=== PATIENT | female | born 1960 ===

== ENCOUNTER → 2021-08-20 09:56 | Outpatient (BNVA) | payer MEDICARE, OTHER, SELFPAY | PROVIDERS: PCP Internal Medicine; Visit Provider Nurse Practitioner Family | DX: R35.1 Nocturia (principal); R51.9 Headache, unspecified; G47.33 Obstructive sleep apnea (adult) (pediatric); M54.2 Cervicalgia | CPT/HCPCS: 99212 ==

== ENCOUNTER → 2021-12-10 13:28 | Outpatient (BNVA) | payer MEDICARE, OTHER, SELFPAY | PROVIDERS: PCP Internal Medicine; Visit Provider Nurse Practitioner Family | DX: R51.9 Headache, unspecified (principal); R25.1 Tremor, unspecified; M54.2 Cervicalgia; G47.33 Obstructive sleep apnea (adult) (pediatric) | CPT/HCPCS: 99212 ==

== ENCOUNTER → 2022-03-14 08:26 | Outpatient (BNVA) | payer MEDICARE, OTHER, SELFPAY | PROVIDERS: PCP Internal Medicine; Visit Provider Nurse Practitioner Family | DX: R51.9 Headache, unspecified (principal); M54.2 Cervicalgia; M25.511 Pain in right shoulder | CPT/HCPCS: 99212 ==

== ENCOUNTER → 2022-07-04 08:00 | Outpatient (BNVA) | payer MEDICARE, OTHER, SELFPAY | PROVIDERS: Visit Provider Nurse Practitioner Family | DX: R51.9 Headache, unspecified (principal); M54.2 Cervicalgia; G47.33 Obstructive sleep apnea (adult) (pediatric) | CPT/HCPCS: 99212 ==

== ENCOUNTER → 2022-11-07 09:27 | Outpatient (BNVA) | payer MEDICARE, OTHER, SELFPAY | PROVIDERS: Absent Provider Nurse Practitioner Family; PCP Neurological Surgery; Visit Provider Nurse Practitioner Family | DX: R51.9 Headache, unspecified (principal); M54.2 Cervicalgia; G47.33 Obstructive sleep apnea (adult) (pediatric) | CPT/HCPCS: 99212 ==

== ENCOUNTER 2023-05-09 09:34 | Outpatient (AMB) | payer MEDICARE, OTHER, SELFPAY ==
--- NOTE | 2023-05-09 09:54 | MHC.OFFVIS ---
Intake Vital Signs 05/09/23 09:55 Height 4 ft 11 in Weight 138 lb BMI 27.9 BP 110/78 Blood Pressure Location Rt brachial Position Sitting Pulse 100 Pulse Source Pulse Oximeter Pulse Oximetry (%) 95 Oxygen Delivery Method Room Air Intake Visit Reasons: 6m follow up headache-Confirmed Intake Note: Patient presents for 6 month headache. patient states I need a refill on my headache medicine, Im getting a few headaches but I think it's allergies Allergies amoxicillin [From Augmentin] Allergy (Intermediate, Verified 05/09/23 09:57) unknown aspirin Allergy (Intermediate, Verified 05/09/23 09:57) Unknown clavulanic acid [From Augmentin] Allergy (Intermediate, Verified 05/09/23 09:57) unknown Medication List - Last Reconciled 05/09/23 by FADIA Muñoz albuterol sulfate 90 mcg/actuation inhalation atomoxetine 60 mg PO DAILY atorvastatin 40 mg PO DAILY baclofen 10 mg PO BEDTIME PRN 90 days biotin (Meribin) 5 mg PO DAILY budesonide-formoterol 160-4.5 mcg/actuation (Symbicort) 1 inh inhalation BID bupropion HCl 450 mg PO QAM cetirizine (Zyrtec) 10 mg PO DAILY cholecalciferol (vitamin D3) 25 mcg PO DAILY clonidine HCl 0.1 mg PO TID dapagliflozin propanediol (Farxiga) 10 mg PO DAILY dicyclomine 10 mg PO ONCE PRN famotidine 40 mg PO DAILY fluticasone propionate 50 mcg/actuation 1 spray intranasal DAILY guaifenesin ER (Mucinex) 1,200 mg PO BID lansoprazole 30 mg PO BID levothyroxine (Synthroid) 125 mcg PO DAILY liothyronine 5 mcg PO DAILY metformin ER 1,000 mg PO BID metoclopramide HCl 20 mg PO QID ondansetron 4 mg PO Q8H tiotropium bromide 2.5 mcg/actuation (Spiriva Respimat) 2 puffs inhalation DAILY trazodone 200 mg PO BEDTIME HPI HPI Comments History of Present Illness Details 62-yr-old female presents for f/u visit. Pt denies any significant interval medical changes. Pt reports she is having a tension type headache about once a week or once every 2 weeks. Her neck can still be tight at times. She is trying not to drive as much- as her depth perception is off and she can have diplopia with extreme right lateral gaze d/t her Grave's. Tremor is stable. She does have increased oral-lingual movements today. Pt states she thinks this maybe d/t some dry mouth. However, it has been noticeable over the last 3 months or so, and is bothersome to her. She has been on Metoclopramide for years. She denies any h/o of antipsychotic medication use or psychiatric hospitalization. [facility] Medical History FH: cholecystectomy Family History Father COPD (chronic obstructive pulmonary disease) Heart disease Mother COPD (chronic obstructive pulmonary disease) Social History Alcohol intake: current Alcohol intake frequency: holidays/special occasions only Patient Tobacco Use Status: Former Tobacco user Quit Date: august 2021 Review of Systems Const All systems reviewed & are unremarkable except as noted in HPI and below Physical Exam Vital Signs: Last Vital Signs Pulse 100 05/09/23 09:55 BP 110/78 05/09/23 09:55 Pulse Ox 95 05/09/23 09:55 Oxygen Delivery Method Room Air 05/09/23 09:55 BMI result Body Mass Index 27.9 Const General: cooperative and no acute distress Orientation/consciousness: patient oriented x3 HEENT Head: Yes normocephalic Resp Effort & Inspection: normal respiratory effort and able to speak in complete sentences Neuro Other: Involunatry oral-lingual movements. Very mild BUE postural tremor. General: patient oriented x3, gait normal and CN's II-XI intact bilaterally Cognition (Neuro): normal cognition Motor exam (neuro): 5/5 motor strength present throughout Psych Appearance: grossly normal Mental Status: mental status grossly normal Speech and movement: Clear speech present Affect: normal affect Attitude: cooperative Thought process: Normal thought process present Thought content: Normal thought content present Assessment & Plan Assessment & Plan (1) TTH (tension-type headache): Code(s): G44.209 - Tension-type headache, unspecified, not intractable (2) Headache: Comment: likely cervicogenic. In 2020- had increased positional BANDA (lying down) in setting of weight gain and LP OP 24 cmH2O. Code(s): R51.9 - Headache, unspecified (3) Cervicalgia: Code(s): M54.2 - Cervicalgia (4) Tremor: Code(s): R25.1 - Tremor, unspecified (5) Abnormal involuntary movement: Comment: ? TD secondary to chronic Metoclopramide use Code(s): R25.9 - Unspecified abnormal involuntary movements Plan For Headache- May use Fioricet prn- sparingly If headaches worsen, consider resuming Topiramate or trying prn gepant For cervicalgia- Continue Baclofen prn, may take extra 1 tab per day prn. Encouraged pt to do upper body stretches/ROM, sunita when knitting etc. For involuntary oral movements- Discussed these likely are d/t TD d/t chronic metoclopramide use. Information given for pt to review. We could consider head imaging; trial of a VMAT-2 inhibitor. For tremor- Stable- monitor clinically. For JOSE- Continue to try to use oral appliance. Monitor sleep. f/u in 3-4 months or sooner prn. Coding Level of Care Code Est Pt Level 4 (26639) Diagnoses TTH (tension-type headache) G44.209 Headache R51.9 Cervicalgia M54.2 Tremor R25.1 Abnormal involuntary movement R25.9
[2023-05-09 09:55] VITALS: BP 110/78; PULSE 100; O2SAT 95; BMI 27.9
== END 2023-05-09 10:36 | disposition home or self-care (01) ==
PROVIDERS: PCP Neurological Surgery; Visit Provider Nurse Practitioner Family
DX: G44.209 Tension-type headache, unspecified, not intractable (principal); M54.2 Cervicalgia; R25.9 Unspecified abnormal involuntary movements
CPT/HCPCS: 99214

== ENCOUNTER → 2023-05-09 09:34 | Outpatient (BNVA) | payer MEDICARE, OTHER, SELFPAY | PROVIDERS: PCP Neurological Surgery; Visit Provider Nurse Practitioner Family | DX: G44.209 Tension-type headache, unspecified, not intractable (principal); R51.9 Headache, unspecified | CPT/HCPCS: 99212 ==

== ENCOUNTER 2023-08-26 09:28 | Outpatient (AMB) | payer MEDICARE, OTHER, SELFPAY ==
--- NOTE | 2023-08-26 09:39 | A.OFFVIS_ITS ---
Intake Vital Signs 08/26/23 09:40 Height 4 ft 11 in Weight 138 lb BMI 27.9 BP 100/82 Blood Pressure Location Rt brachial Position Sitting Pulse 111 H Pulse Source Pulse Oximeter Intake Visit Reasons: 6m follow up headache-Confirmed Intake Note: Patient presents for 6 month follow headache. Everything's fine Allergies amoxicillin [From Augmentin] Allergy (Intermediate, Verified 08/26/23 09:42) unknown aspirin Allergy (Intermediate, Verified 08/26/23 09:42) Unknown clavulanic acid [From Augmentin] Allergy (Intermediate, Verified 08/26/23 09:42) unknown Medication List - Last Reconciled 08/26/23 by FADIA Muñoz albuterol sulfate 90 mcg/actuation inhalation atomoxetine 60 mg PO DAILY atorvastatin 40 mg PO DAILY baclofen 10 mg PO BEDTIME PRN 90 days biotin (Meribin) 5 mg PO DAILY budesonide-formoterol 160-4.5 mcg/actuation (Symbicort) 1 inh inhalation BID bupropion HCl 450 mg PO QAM cetirizine (Zyrtec) 10 mg PO DAILY cholecalciferol (vitamin D3) 25 mcg PO DAILY clonidine HCl 0.1 mg PO TID dapagliflozin propanediol (Farxiga) 10 mg PO DAILY dicyclomine 10 mg PO ONCE PRN famotidine 40 mg PO DAILY fluticasone propionate 50 mcg/actuation 1 spray intranasal DAILY guaifenesin ER (Mucinex) 1,200 mg PO BID lansoprazole 30 mg PO BID levothyroxine (Synthroid) 125 mcg PO DAILY liothyronine 5 mcg PO DAILY metformin ER 1,000 mg PO BID metoclopramide HCl 20 mg PO QID ondansetron 4 mg PO Q8H tiotropium bromide 2.5 mcg/actuation (Spiriva Respimat) 2 puffs inhalation DAILY trazodone 200 mg PO BEDTIME HPI HPI Comments History of Present Illness Details 62-yr-old female presents for f/u visit. Pt denies any significant interval medical changes. Pt has been having more mild frontal headaches (maybe sinus) than occipital region headaches. Using Tylenol for the frontal headaches. Uses Fioricet for the occipital headaches. Typically taking an as needed tx 1-2 x's per week. She has been having more noticeable intermittent diplopia, now looking forward rather than just in peripheral vision. If she is looking in the distance, say at a sign/picture and than tries to read it, the letters/words becomes double. Watching TV is usually ok, but sometimes has to make herself focus. Her has not been mentioning her oral movements lately. [facility] Medical History FH: cholecystectomy Family History Father COPD (chronic obstructive pulmonary disease) Heart disease Mother COPD (chronic obstructive pulmonary disease) Social History Alcohol intake: current Alcohol intake frequency: holidays/special occasions only Patient Tobacco Use Status: Former Tobacco user Quit Date: august 2021 Physical Exam Vital Signs: Last Vital Signs Pulse 111 H 08/26/23 09:40 BP 100/82 08/26/23 09:40 BMI result Body Mass Index 27.9 Const General: cooperative and no acute distress Orientation/consciousness: patient oriented x3 Resp Effort & Inspection: normal respiratory effort and able to speak in complete sentences Neuro Other: Asymmetric proptosis Involuntary orolingual movements. General: patient oriented x3 Cranial nerves: Yes CN's II-XII intact bilaterally Cognition (Neuro): normal cognition Psych Appearance: grossly normal Mental Status: mental status grossly normal Speech and movement: Normal speech and movement present Affect: normal affect Attitude: cooperative Assessment & Plan Assessment & Plan (1) Headache: Comment: likely cervicogenic. In 2020- had increased positional BANDA (lying down) in setting of weight gain and LP OP 24 cmH2O. Code(s): R51.9 - Headache, unspecified (2) Diplopia: Code(s): H53.2 - Diplopia (3) Abnormal involuntary movement: Comment: ? TD secondary to chronic Metoclopramide use Code(s): R25.9 - Unspecified abnormal involuntary movements (4) History of Graves' disease: Code(s): Z86.39 - Personal history of other endocrine, nutritional and metabolic disease (5) Proptosis: Code(s): H05.20 - Unspecified exophthalmos Plan Patient advised to undergo brain MRI with and without contrast to assess for secondary etiologies of worsening diplopia and oral lingual involuntary movements. For Headache- May use Fioricet prn- sparingly If headaches worsen, consider resuming Topiramate or trying prn gepant For cervicalgia- Continue Baclofen prn, may take extra 1 tab per day prn. Continue to do upper body stretches/ROM. For involuntary oral movements- Monitor clinically. We could consider trial of a VMAT-2 inhibitor. For tremor- Stable- monitor clinically. For JOSE- Continue to try to use oral appliance. Monitor sleep. f/u in 3-4 months or sooner prn. Orders: Orders Complete Blood Count Auto Diff 08/26/23 H53.2 - Diplopia, R25.9 - Unspecified abnormal involuntary movements, R51.9 - Headache, unspecified Comprehensive Met. Panel 08/26/23 H53.2 - Diplopia, R25.9 - Unspecified abnormal involuntary movements, R51.9 - Headache, unspecified MR head/brain wo/w con 08/26/23 H05.20 - Unspecified exophthalmos, H53.2 - Diplopia, R25.9 - Unspecified abnormal involuntary movements, R51.9 - Headache, unspecified, Z86.39 - Personal history of other endocrine, nutritional and metabolic disease Medications: Refilled baclofen may take 1 extra tab per day as needed 10 mg PO BEDTIME 90 days PRN 145 tabs 1RF neck pain ujstswnthq-qfoyewzkfporn-kcgm 50-325-40 mg 1 tab PO Q4H 90 days PRN 60 tabs 1RF headache Coding Level of Care Code Est Pt Level 4 (64687) Diagnoses Headache R51.9 Diplopia H53.2 Abnormal involuntary movement R25.9 History of Graves' disease Z86.39 Proptosis H05.20
[2023-08-26 09:40] VITALS: BP 100/82; PULSE 111; BMI 27.9
== END 2023-08-26 10:28 | disposition home or self-care (01) ==
PROVIDERS: PCP Neurological Surgery; Visit Provider Nurse Practitioner Family
DX: R51.9 Headache, unspecified (principal); H53.2 Diplopia; R25.9 Unspecified abnormal involuntary movements; Z86.39 Personal history of other endocrine, nutritional and metabolic disease; H05.20 Unspecified exophthalmos
CPT/HCPCS: 99214

== ENCOUNTER → 2023-08-26 09:28 | Outpatient (BNVA) | payer MEDICARE, OTHER, SELFPAY | PROVIDERS: PCP Neurological Surgery; Visit Provider Nurse Practitioner Family | DX: R51.9 Headache, unspecified (principal); H53.2 Diplopia; R25.9 Unspecified abnormal involuntary movements; H05.20 Unspecified exophthalmos; Z86.39 Personal history of other endocrine, nutritional and metabolic disease | CPT/HCPCS: 99212 ==

== ENCOUNTER 2023-10-03 11:12 | Outpatient (REF) | payer MEDICARE, OTHER, SELFPAY ==
--- NOTE | ~2023-10-03 | MR_ITS ---
EXAMINATION: MR BRAIN WITHOUT AND WITH CONTRAST CLINICAL INFORMATION: Diplopia, history of Graves' disease proptosis COMPARISON: CT of the orbits 05/20/2022, MRI of the brain without contrast 01/31/2021 TECHNIQUE: Multiplanar multisequence MR imaging of the brain was obtained without and following the administration of 6.5 mL Gadavist intravenous contrast. FINDINGS: There is no acute infarct on diffusion-weighted imaging. There is no intracranial hemorrhage on iron-sensitive imaging. No extra-axial collection or mass effect/herniation. Scattered periventricular and deep white matter T2 FLAIR hyperintensities consistent with mild underlying microangiopathy. No hydrocephalus. Mild generalized cerebral volume loss with commensurate sulcal and ventricular prominence. No abnormal parenchymal or extra-axial enhancement. The major flow voids at the skull base are preserved. The midline structures are normal. The cerebellar tonsils are normally positioned. The craniocervical junction is normal. Marrow signal is within normal limits. The visualized soft tissues are without significant abnormality. No signal abnormality within the paranasal sinuses or within the mastoid air cells. Stable right greater than left proptosis with prominent intraorbital fat. Grossly normal caliber of the extraocular muscles. Chronic fracture deformity of the right lamina papyracea with mild medial herniation of extraconal fat. MR/MR head/brain wo/w con IMPRESSION: 1. Stable right greater than left proptosis with prominent intraorbital fat, compatible with sequela of thyroid orbitopathy. 2. Mild volume loss and chronic white matter microangiopathy. Otherwise unremarkable contrast-enhanced MRI of the brain.
[2023-10-03] MEDS: gadobutroL 7.5 ML VIAL IVPUSH (12:04)
== END 2023-10-03 11:13 | disposition home or self-care (01) ==
LOC: HO.MRI 11:12
PROVIDERS: Visit Provider Nurse Practitioner Family
DX: H53.2 Diplopia (principal); R25.9 Unspecified abnormal involuntary movements; R51.9 Headache, unspecified; H05.20 Unspecified exophthalmos; Z86.39 Personal history of other endocrine, nutritional and metabolic disease
CPT/HCPCS: 70553; A9585

== ENCOUNTER 2023-12-23 09:09 | Outpatient (AMB) | payer MEDICARE, OTHER, SELFPAY ==
--- NOTE | 2023-12-23 09:12 | A.OFFVIS_ITS ---
Vital Signs 12/23/23 09:13 12/23/23 10:00 12/23/23 10:01 12/23/23 10:02 Height 4 ft 11 in Weight 136 lb BMI 27.5 BP 98/72 114/74 98/70 112/78 Blood Pressure Location Rt brachial Rt brachial Rt brachial Rt brachial Position Sitting Supine Standing Standing Pulse 108 H 101 H 106 H Pulse Source Pulse Oximeter Pulse Oximeter Pulse Oximeter Pulse Oximetry (%) 97 Oxygen Delivery Method Room Air Comment after 3 mins Intake Visit Reasons: 4 mo f/u-LVM Intake Note: Patient presents for 4 month follow up.havent been felling well sinced i last saw her, feeling light headed when stands a they feel weak and looses balance Allergies amoxicillin [From Augmentin] Allergy (Intermediate, Verified 12/23/23 09:27) unknown aspirin Allergy (Intermediate, Verified 12/23/23 09:27) Unknown clavulanic acid [From Augmentin] Allergy (Intermediate, Verified 12/23/23 09:27) unknown Medication List - Last Reconciled 12/23/23 by FADIA Muñoz albuterol sulfate 90 mcg/actuation inhalation atomoxetine 60 mg PO DAILY atorvastatin 40 mg PO DAILY baclofen 10 mg PO BEDTIME PRN 90 days biotin (Meribin) 5 mg PO DAILY budesonide-formoterol 160-4.5 mcg/actuation (Symbicort) 1 inh inhalation BID bupropion HCl XL 450 mg PO QAM juqlsurpfk-ozsmhjntixtqw-mnwu 50-325-40 mg 1 tab PO Q4H PRN 90 days cetirizine (Zyrtec) 10 mg PO DAILY cholecalciferol (vitamin D3) 25 mcg PO DAILY clonidine HCl 0.1 mg PO TID dapagliflozin propanediol (Farxiga) 10 mg PO DAILY dicyclomine 10 mg PO ONCE PRN famotidine 40 mg PO DAILY fluticasone propionate 50 mcg/actuation 1 spray intranasal DAILY guaifenesin ER (Mucinex) 1,200 mg PO BID lansoprazole 30 mg PO BID levothyroxine (Synthroid) 125 mcg PO DAILY liothyronine 5 mcg PO DAILY metformin ER 1,000 mg PO BID metoclopramide HCl 20 mg PO QID ondansetron 4 mg PO Q8H tiotropium bromide 2.5 mcg/actuation (Spiriva Respimat) 2 puffs inhalation DAILY trazodone 200 mg PO BEDTIME HPI Comments Details: Right-handed 63-yr-old female presents for f/u visit. Pt reports she has been having lightheadedness/dizziness upon standing or turning quickly for the last year- but not rolling over in bed. However, more recently this has become more intense and more frequent- now almost every time she stands or turns. Her diplopia is stable- occurs when she turns her head. Takes clonidine 0.1mg qhs. Otherwise not on a BP med. She does take a lot of fluids. She has not smoked in > 7 months. Her voice is more hoarse today- she thinks this is allergies. Walking slower. She is having more STM or recalling the names of things. Prone nick onstipation- her whole life. Denies tremor, leg cramps, stiffness, parasomnias, hyposmia. Takes metoclopramide. No other h/o psychotropic med use. The headaches are pretty good . She is not noticing her oral movements. 10/03/23, MR/MR head/brain wo/w con IMPRESSION: 1. Stable right greater than left proptosis with prominent intraorbital fat, compatible with sequela of thyroid orbitopathy. 2. Mild volume loss and chronic white matter microangiopathy. Otherwise unremarkable contrast-enhanced MRI of the brain. [facility] Medical History FH: cholecystectomy Family History Father COPD (chronic obstructive pulmonary disease) Heart disease Mother COPD (chronic obstructive pulmonary disease) Social History Alcohol intake: current Alcohol intake frequency: holidays/special occasions only Patient Tobacco Use Status: Former Tobacco user Quit Date: august 2021 Physical Exam Vital Signs: Last Vital Signs Pulse 106 H 12/23/23 10:01 BP 112/78 12/23/23 10:02 Pulse Ox 97 12/23/23 09:13 Oxygen Delivery Method Room Air 12/23/23 09:13 BMI result Body Mass Index 27.5 Const General: cooperative and no acute distress Orientation/consciousness: patient oriented x3 Resp Effort & Inspection: normal respiratory effort and able to speak in complete sentences Neuro Other: Mild decreased expression Mild intermittent lingual movements Hoarse soft voice LUE postural tremor BUE MELINDA- slower on left Tone- no appreciable tone FFM- mildly decreased on left Foot taps- Mildly decreased on left Gait- stands slowly, decreased left arm swing, multiple steps to turn, unsteady during turn, steady gait when walking straight. General: patient oriented x3 Cranial nerves: Yes CN's II-XII intact bilaterally Cognition (Neuro): normal cognition Psych Appearance: grossly normal Mental Status: mental status grossly normal Affect: normal affect Attitude: cooperative Assessment & Plan Assessment & Plan (1) Headache: Comment: likely cervicogenic. In 2020- had increased positional BANDA (lying down) in setting of weight gain and LP OP 24 cmH2O. Code(s): R51.9 - Headache, unspecified Category: Medical (2) Abnormal involuntary movement: Comment: ? TD secondary to chronic Metoclopramide use Code(s): R25.9 - Unspecified abnormal involuntary movements Category: Medical (3) Lightheadedness: Code(s): R42 - Dizziness and giddiness Category: Medical (4) Tremor: Code(s): R25.1 - Tremor, unspecified Category: Medical Plan Reviewed brain MRI w/wo: Mild volume loss and chronic white matter microangiopathy. Otherwise unremarkable. For lightheadedness, orthostatic BPs- decreased w/ non-compensatory HR changes, trmeor, gait changes in setting of metoclopramide use and TD s/s: Pt advsied to undergo DaTscan to assess for dopamine deficiency. Add electrolyte replacement drink- 1-2 servings per day. Stand slowly, may try doing foot taps beofre standing. Turn slowly. ? For Headache- May use Fioricet prn- sparingly If headaches worsen, consider resuming Topiramate or trying prn gepant For cervicalgia- Continue Baclofen prn, may take extra 1 tab per day prn. Continue to do upper body stretches/ROM. For involuntary oral movements- Monitor clinically. We could consider trial of a VMAT-2 inhibitor. For JOSE- Continue to try to use oral appliance. Monitor sleep. f/u in 3-4 months or sooner prn. Orders: Orders DaTscan Today R25.1 - Tremor, unspecified, R25.9 - Unspecified abnormal involuntary movements, R42 - Dizziness and giddiness, R51.9 - Headache, unspecified Coding Level of Care Code Est Pt Level 4 (77273) Diagnoses Headache R51.9 Abnormal involuntary movement R25.9 Lightheadedness R42 Tremor R25.1
[2023-12-23 09:13] VITALS: BP 98/72; PULSE 108; O2SAT 97; BMI 27.5
[2023-12-23 10:00] VITALS: BP 114/74; PULSE 101
[2023-12-23 10:01] VITALS: BP 98/70; PULSE 106
[2023-12-23 10:02] VITALS: BP 112/78
== END 2023-12-23 10:13 | disposition home or self-care (01) ==
PROVIDERS: PCP Neurological Surgery; Visit Provider Nurse Practitioner Family
DX: R51.9 Headache, unspecified (principal); R25.9 Unspecified abnormal involuntary movements; R42 Dizziness and giddiness; R25.1 Tremor, unspecified
CPT/HCPCS: 99214

== ENCOUNTER → 2023-12-23 09:09 | Outpatient (BNVA) | payer MEDICARE, OTHER, SELFPAY | PROVIDERS: PCP Neurological Surgery; Visit Provider Nurse Practitioner Family | DX: R51.9 Headache, unspecified (principal); R25.1 Tremor, unspecified; R25.9 Unspecified abnormal involuntary movements; R42 Dizziness and giddiness | CPT/HCPCS: 99212 ==